=== PATIENT | female | born 1995 | race Caucasian/White ===

== ENCOUNTER 2016-08-29 22:12 | Emergency (ER) | payer OTHER ==
[~2016-08-29] VITALS: Ht 160 cm; Wt 54.4 kg
[2016-08-29] MEDS ORDERED: ETON1VAG (22:43)
--- NOTE | 2016-08-29 22:45 | ED Head Injury ---
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 PATIENT C/O NAUSEA Source: patient, RN notes reviewed Exam Limitations: no limitations History of Present Illness Time seen by provider: 22:45 Initial Comments As above and below. Concerned she may have a concussion. Occurred: yesterday Severity: mild Method of Injury: direct blow Loss of Consciousness: no loss of consciousness Associated Systoms: Headaches, Other (nausea) Allergies and Home Medications Allergies Coded Allergies: No Known Drug Allergies (Unverified , 08/29/16) Home Medications Etonogestrel/Ethinyl Estradiol 1 Each Vag.ring, #3 (Reported) Constitutional: see HPI Gastrointestinal: see HPI, nausea Psychiatric/Neurological: See HPI, Headache All Other Systems Reviewed Negative Unless Noted: Yes (Negative excepted noted.) Past Optpdcw-Ngusbz-Aqbhkj Hx Patient Social History Alcohol Use: Denies Use Recreational Drug Use: No Smoking Status: Never a Smoker Recent Foreign Travel: No Contact w/Someone Who Travel: No Recent Infectious Disease Expo: No Recent Hopitalizations: No Surgeries HX Surgeries: No Respiratory Hx Respiratory Disorders: No Cardiovascular Hx Cardiac Disorders: No Neurological Hx Neurological Disorders: No Reproductive System Hx Reproductive Disorders: No Sexually Transmitted Disease: No Genitourinary Hx Genitourinary Disorders: No Gastrointestinal Hx Gastrointestinal Disorders: No Musculoskeletal Hx Musculoskeletal Disorders: No Endocrine Hx Endocrine Disorders: No HEENT HX ENT Disorders: No Cancer Hx Cancer: No Psychosocial Hx Psychiatric Problems: No Integumentary HX Skin/Integumentary Disorder: No Blood Transfusions Hx Blood Disorders: No Physical Exam Vital Signs Vital Sign - Last 12Hours 08/29/16 22:40 Temp 98.2 Pulse 84 Resp 18 B/P (MAP) 133/80 Pulse Ox 99 Capillary Refill : Less Than 3 Seconds General Appearance: WD/WN, no apparent distress HEENT: PERRL/EOMI, TMs normal, pharynx normal Neck: non-tender, supple Cardiovascular: regular rate, rhythm Respiratory: no respiratory distress Psychiatric: alert, oriented x 3 Crainal Nerves: normal hearing, normal speech, PERRL Coordination/Gait: normal finger to nose, normal gait Motor/Sensory: no motor deficit, no sensory deficit, no pronator drift Skin: warm/dry Progress/Results/Core Measures Results/Orders My Orders Vital Signs/I&O Blood Pressure Mean: 97 Diagnostic Imaging Diagonstic Imaging: CT Plain Films/CT/US/NM/MRI: head Reviewed: Reviewed Night Hawk Study (nothing acute) Departure Impression Impression: Primary Impression: Concussion without loss of consciousness Disposition: 01 HOME, SELF-CARE Condition: Stable Departure-Patient Inst. Decision time for Depature: 23:46 Referrals: NO,LOCAL PHYSICIAN (PCP/Family) Primary Care Physician Patient Instructions: Concussion, Adult (DC) DONNIE KIRKPATRICK DO Aug 29, 2016 22:45
[2016-08-30 00:01] VITALS: BP 120/73
--- NOTE | 2016-08-30 07:52 | Diagnostic Imaging Report ---
PROCEDURE: CT head without contrast. TECHNIQUE: Multiple contiguous axial images were obtained through the brain without the use of intravenous contrast. INDICATION: Head injury. Pain. FINDINGS: There is no hemorrhage, hydrocephalus, edema, mass, mass effect, or evidence for elevated intracranial pressures. No calvarial fracture deformity or hemo-sinus apparent. IMPRESSION: No hemorrhage, fracture deformity, or acute abnormality. I agree with the preliminary. Dictated by: Dictated on workstation # [id number]
== END 2016-08-29 23:57 | disposition home or self-care (01) ==
LOC: ER 22:14
DX: S06.0X0A Concussion without loss of consciousness, initial encounter (principal); X58.XXXA Exposure to other specified factors, initial encounter; Y99.8 Other external cause status
CPT/HCPCS: 70450; 99282

== ENCOUNTER 2017-06-03 22:04 | Emergency (ER) | payer OTHER ==
[~2017-06-03] VITALS: Ht 160 cm; Wt 59.0 kg
[~2017-06-03 22:04] MED LIST: ETON1VAG
--- OUTSIDE RECORDS SUMMARY | 2017-06-03 22:10 | XMS REPORT | CCD ---
Author Author Auto Generated Organization [facility], [facility]. Address Unknown Phone Unavailable Care Team Providers Care Headhunter Name Role Phone Kasia Brooks PP [phone] Allergies, Adverse Reactions, Alerts Substance Reaction Status No Known Medication Allergies Active Problem List Condition Effective Dates Status Lymphadenopathy Active
--- OUTSIDE RECORDS SUMMARY | 2017-06-03 22:10 | XMS REPORT ---
Author Author [facility] Address Unknown Phone Unavailable Care Team Providers Care Care Team Coordinator Scheduler Name Role Phone Kasia Brooks PCP Encounter [id number] [id number] Date(s): 05/26/15 - 05/26/15 [facility] [address] [facility] [address] [phone] Attending Physician: Kasia Brooks MD Vital Signs No data available for this section Problem List Condition Effective Dates Status Health Status Informant Lymphadenopathy(Conf Active [facility]) Diagnosis Diagnosis Type Effective Dates Health Status Clinical Service Informant Dysmenorrhea Discharge 05/26/15 Non-Specified Diagnosis Allergies, Adverse Reactions, Alerts No Known Allergies Medications No Known Medications Results No data available for this section Immunizations No data available for this section Procedures No data available for this section Social History No data available for this section Assessment and Plan No data available for this section
--- OUTSIDE RECORDS SUMMARY | 2017-06-03 22:10 | XMS REPORT ---
Author Author [facility] Organization [facility] Address Unknown Phone Unavailable Care Team Providers Care Shell Assembler Name Role Phone Kasia Brooks PCP Encounter [id number] [id number] Date(s): 10/27/14 - 10/27/14 [facility] [address] [place], [place] [address] Discharge Diagnosis: Need for HPV vaccination Discharge Diagnosis: Need for hepatitis A vaccination Discharge Diagnosis: Need for Menactra vaccination Attending Physician: Guerita Winchester Vital Signs No data available for this section Problem List Condition Effective Dates Status Health Status Informant Lymphadenopathy(Conf Active [facility]) Allergies, Adverse Reactions, Alerts No Known Allergies Medications No Known Medications Results No data available for this section Immunizations No data available for this section Procedures No data available for this section Social History No data available for this section Assessment and Plan No data available for this section
--- OUTSIDE RECORDS SUMMARY | 2017-06-03 22:10 | XMS REPORT ---
Author Author [facility] Organization [facility] Address Unknown Phone Unavailable Care Team Providers Care Compounder Flavorings Name Role Phone Kasia Brooks PCP Encounter [id number] [id number] Date(s): 05/15/17 - 05/15/17 [facility] [address] [facility] Attending Physician: Kasia Brooks MD Vital Signs No data available for this section Problem List Condition Effective Dates Status Health Status Informant Lymphadenopathy(Conf Active [facility]) Allergies, Adverse Reactions, Alerts No Known Allergies Medications No data available for this section Results No data available for this section Immunizations Given and Recorded Vaccine Date Status Refusal Reason hepatitis A adult vaccine 06/01/16 Given tetanus/diphth/pertuss (Tdap) adult/adol 05/26/15 Given human papillomavirus vaccine 05/26/15 Given human papillomavirus vaccine 12/11/14 Given human papillomavirus vaccine 10/27/14 Given meningococcal conjugate vaccine 10/27/14 Given hepatitis A pediatric vaccine 10/27/14 Given varicella virus vaccine 01/10/11 Recorded varicella virus vaccine 05/14/97 Recorded diphtheria/pertussis, acel/tetanus pedia 01/10/11 Recorded diphtheria/pertussis, acel/tetanus pedia 07/05/00 Recorded diphtheria/pertussis, acel/tetanus pedia 09/03/97 Recorded diphtheria/pertussis, acel/tetanus pedia 02/19/97 Recorded influenza virus vaccine 05/15/03 Recorded poliovirus vaccine, inactivated 07/05/00 Recorded poliovirus vaccine, inactivated 08/14/97 Recorded poliovirus vaccine, inactivated 96 Recorded poliovirus vaccine, inactivated 96 Recorded measles/mumps/rubella virus vaccine 07/05/00 Recorded measles/mumps/rubella virus vaccine 05/14/97 Recorded pneumococcal 7-valent vaccine 10/07/99 Recorded haemophilus b conjugate (PRP-T) vaccine 09/03/97 Recorded haemophilus b-hepatitis B vaccine 02/19/97 Recorded dipht/haemophilus/pertuss/tetanus/polio 96 Recorded dipht/haemophilus/pertuss/tetanus/polio 96 Recorded hepatitis B pediatric/adolescent vaccine 96 Recorded hepatitis B pediatric/adolescent vaccine 96 Recorded Procedures No data available for this section Social History No data available for this section Assessment and Plan No data available for this section
--- OUTSIDE RECORDS SUMMARY | 2017-06-03 22:10 | XMS REPORT ---
Author Author [facility] Organization [facility] Address Unknown Phone Unavailable Care Team Providers Care Statistical Assistant Name Role Phone Kasia Brooks PCP Encounter [id number] [id number] Date(s): 12/11/14 - 12/11/14 [facility] [address] [place], [place] [address] Attending Physician: [facility] Walk-In Non-Staff Vital Signs No data available for this [...]
--- OUTSIDE RECORDS SUMMARY | 2017-06-03 22:10 | XMS REPORT ---
Author Author [facility] Organization [facility] Address Unknown Phone Unavailable Care Team Providers Care Drywall Contractor Name Role Phone Kasia Brooks PCP Encounter [id number] [id number] Date(s): 06/01/16 - 06/01/16 [facility] [address] [facility] [place] [address] [facility] Attending Physician: Kasia Brooks MD Vital Signs No data available for this section Problem List Condition Effective Dates Status Health Status Informant Lymphadenopathy(Conf Active [facility]med) Diagnosis Diagnosis Type Effective Dates Health Status Clinical Service Informant Routine check-up Discharge 06/01/16 Diagnosis Allergies, Adverse Reactions, Alerts No Known Allergies Medications No Known Medications Results No data available for this section Immunizations Given and Recorded Vaccine Date Status Refusal Reason diphtheria/pertussis, acel/tetanus pedia 01/10/11 Recorded diphtheria/pertussis, acel/tetanus pedia 07/05/00 Recorded diphtheria/pertussis, acel/tetanus pedia 09/03/97 Recorded diphtheria/pertussis, acel/tetanus pedia 02/19/97 Recorded dipht/haemophilus/pertuss/tetanus/polio 96 Recorded dipht/haemophilus/pertuss/tetanus/polio 96 Recorded haemophilus b conjugate (PRP-T) vaccine 09/03/97 Recorded haemophilus b-hepatitis B vaccine 02/19/97 Recorded hepatitis A adult vaccine 06/01/16 Given hepatitis A pediatric vaccine 10/27/14 Given hepatitis B pediatric/adolescent vaccine 96 Recorded hepatitis B pediatric/adolescent vaccine 96 Recorded human papillomavirus vaccine 05/26/15 Given human papillomavirus vaccine 12/11/14 Given human papillomavirus vaccine 10/27/14 Given influenza virus vaccine 05/15/03 Recorded measles/mumps/rubella virus vaccine 07/05/00 Recorded measles/mumps/rubella virus vaccine 05/14/97 Recorded meningococcal conjugate vaccine 10/27/14 Given pneumococcal 7-valent vaccine 10/07/99 Recorded poliovirus vaccine, inactivated 07/05/00 Recorded poliovirus vaccine, inactivated 08/14/97 Recorded poliovirus vaccine, inactivated 96 Recorded poliovirus vaccine, inactivated 96 Recorded tetanus/diphth/pertuss (Tdap) adult/adol 05/26/15 Given varicella virus vaccine 01/10/11 Recorded varicella virus vaccine 05/14/97 Recorded Procedures No data available for this section Social History No data available for this section Assessment and Plan No data available for this section
--- OUTSIDE RECORDS SUMMARY | 2017-06-03 22:10 | XMS REPORT ---
Author Author [facility] Organization [facility] Address Unknown Phone Unavailable Care Team Providers Care Tattoo And Body Artist Name Role Phone TdodHankKasia Robi PCP Encounter [id number] [id number] Date(s): 02/16/17 - 02/16/17 [facility] [address] [facility] Attending Physician: Peri Anderson APRN Vital Signs No data available for this section Problem List Condition Effective Dates Status Health Status Informant Lymphadenopathy(Conf Active [facility]med) Diagnosis Diagnosis Type Effective Dates Health Status Clinical Service Informant Headache Discharge 02/16/17 Diagnosis Depression Discharge 02/16/17 Diagnosis Anxiety Discharge 02/16/17 Diagnosis Heat intolerance Discharge 02/16/17 Diagnosis Allergies, Adverse Reactions, Alerts No Known [...]
--- OUTSIDE RECORDS SUMMARY | 2017-06-03 22:10 | XMS REPORT | Continuity of Care Document ---
Author Author [employer] Organization [facility] Address Unknown Phone Unavailable Care Team Providers Care Team Truck Driver Name Role Phone [employer] Unavailable Unavailable Problems Problem Status Onset Date Classification Date Reported Comments Source Dizziness and giddiness Diagnosis 04/25/2017 [facility] Headache 04/21/2017 Diagnosis 04/25/2017 [facility] Headache (finding) 2016 Diagnosis 04/25/2017 [facility] Dizziness (finding) 2016 Diagnosis 04/25/2017 [facility] Depressive disorder (disorder) 02/16/2017 Diagnosis 02/20 [facility] Anxiety (finding) 2016 Diagnosis 02/20/2017 [facility] Intolerant of heat (finding) 02/16/2017 Diagnosis 2016 [facility] Patient encounter status (finding) 06/01/2016 Diagnosis 06/05/2016 [facility] Dysmenorrhea (disorder) Diagnosis 05/30/2015 [facility] Need for prophylactic vaccination and inoculation against other viral diseases 10/27/2014 Diagnosis 10/31/2014 [facility] Need for prophylactic vaccination and inoculation against viral hepatitis 10/27/2014 Diagnosis 10/31/2014 [facility] Need for other specified vaccination against single bacterial disease 10/27/2014 Diagnosis 10/31/2014 [facility] Lymphadenopathy (disorder) Active Problem 07/03/2013 [facility]. Medications Medication Details Route Status Patient Instructions Ordering Provider Order Date Source No Known Medications No known medications Active [facility] Allergies, Adverse Reactions, Alerts Immunizations Immunization Date Given Site Status Last Updated Comments Source Hep A, adult 06/01/2016 Left Deltoid hepatitis A adult vaccine Gengler [facility] Tdap 05/26/2015 Left Deltoid tetanus/diphth/pertuss (Tdap) adult/adol [facility] HPV, quadrivalent 05/26/2015 Left Deltoid human papillomavirus vaccine [facility] HPV, quadrivalent 12/11/2014 Left Deltoid human papillomavirus vaccine S[facility] meningococcal MCV4P 10/27/2014 Left Deltoid meningococcal conjugate vaccine [facility] HPV, quadrivalent 10/27/2014 Right Deltoid human papillomavirus vaccine [facility] Hep A, ped/adol, 2 dose 10/27/2014 Left Deltoid hepatitis A pediatric vaccine [facility] varicella virus vaccine 01/10/2011 varicella virus vaccine [facility] diphtheria/pertussis, acel/tetanus pediatric 2010 diphtheria/pertussis, acel/tetanus pedia [facility] influenza virus vaccine 05/15/2003 influenza virus vaccine [facility] poliovirus vaccine, inactivated 07/05/2000 poliovirus vaccine, inactivated [facility] measles/mumps/rubella virus vaccine 07/05/2000 measles/mumps/rubella virus vaccine [facility] diphtheria/pertussis, acel/tetanus pediatric 2000 diphtheria/pertussis, acel/tetanus pedia [facility] pneumococcal 7-valent vaccine 10/07/1999 pneumococcal 7-valent vaccine [facility] diphtheria/pertussis, acel/tetanus pediatric 1997 diphtheria/pertussis, acel/tetanus pedia [facility] haemophilus b conjugate (PRP-T) vaccine 09/03/1997 haemophilus b conjugate (PRP-T ) vaccine [facility] poliovirus vaccine, inactivated 08/14/1997 poliovirus vaccine, inactivated [facility] measles/mumps/rubella virus vaccine 05/14/1997 measles/mumps/rubella virus vaccine [facility] varicella virus vaccine 05/14/1997 varicella virus vaccine [facility] haemophilus b-hepatitis B vaccine 02/19/1997 haemophilus b-hepatitis B vaccine [facility] diphtheria/pertussis, acel/tetanus pediatric 1996 diphtheria/pertussis, acel/tetanus pedia [facility] diphth/haemophilus/pertussis/tetanus/polio 1996 dipht/haemophilus/pertuss/ tetanus/polio [facility] poliovirus vaccine, inactivated 1996 poliovirus vaccine, inactivated [facility] diphth/haemophilus/pertussis/tetanus/polio 1996 dipht/haemophilus/pertuss/ tetanus/polio [facility] poliovirus vaccine, inactivated 1996 poliovirus vaccine, inactivated [facility] hepatitis B pediatric vaccine 1996 hepatitis B pediatric/adolescent vaccine [facility] hepatitis B pediatric vaccine 1996 hepatitis B pediatric/adolescent vaccine [facility] Results Vital Signs Encounters Location Location Details Encounter Type Encounter Number Reason For Visit Attending Provider ADM Date DC Date Status Source [facility] CD:[id number] Clinic ( Outpatient) [id number] Kasia Brooks 06/19/2013 Active [facility] [id number] Clinic ( Outpatient) [id number] Kasia Todd 06/25/2013 Active [facility] CD:[id number] Clinic ( Outpatient) [id number] Kasia Simonry 06/26/2013 Active [facility] [id number] Outpatient [id number] Kasia Todd 06/28/2013 06/28/2013 Active [facility], [facility] CD:[id number] Clinic ( Outpatient) [id number] Guerita Winchester 10/27/2014 Active [facility] [id number] Guerita Winchester 10/27/2014 10/28/2014 [facility] [id number] Clinic ( Outpatient) [id number] . [facility] Walk-In 12/11/2014 Active [facility] [id number] . [facility] Walk-In 12/11/2014 12/12/2014 [facility] CD:[id number] Clinic ( Outpatient) [id number] Kasia Todd 05/26/2015 Active [facility] [id number] Kasia Otdd 05/26/2015 05/27/2015 [facility] [id number] Clinic ( Outpatient) [id number] Kasia Todd 06/01/2016 Active [facility] [id number] Kasia Todd 06/01/2016 06/02/2016 [facility] [id number] Clinic ( Outpatient) [id number] Peri Anderson 02/16/2017 Active [facility] [id number] Peri Anderson 02/16/2017 02/17/2017 [facility] CD:[id number] Clinic ( Outpatient) [id number] Steve Garcia 04/21/2017 Active [facility] [id number] Stevejeffrey Garcia 04/21/2017 04/22/2017 [facility] CD:[id number] Clinic ( Outpatient) [id number] Kasia Brooks 05/15/2017 05/15/2017 Active [facility] Cancel/No Show [id number] Kasia Simonry 05/15/2017 [facility] Procedures Plan of Care Social History Assessment and Plan Family History Advance Directives Functional Status
[2017-06-03] MEDS ORDERED: LACTATED RINGERS 1,000 ML IV ONE (22:19)
[2017-06-03 22:26] LABS: BASOPHILS % (AUTO) 0 % (0-10); EOSINOPHILS # (AUTO) 0.2 10^3/uL (0.0-0.3); EOSINOPHILS % (AUTO) 2 % (0-10); HEMATOCRIT 36 % (35-52); HEMOGLOBIN 12.8 G/DL (11.5-16.0); LYMPHOCYTES # (AUTO) 2.6 X 10^3 (1.0-4.0); LYMPHOCYTES % (AUTO) 31 % (12-44); MEAN CORPUSCULAR HEMOGLOBIN 30 PG (25-34); MEAN CORPUSCULAR HGB CONC 36 G/DL (32-36); MEAN CORPUSCULAR VOLUME 83 FL (80-99); MEAN PLATELET VOLUME 9.4 FL (7.4-10.4); MONOCYTES # (AUTO) 0.6 X 10^3 (0.0-1.0); MONOCYTES % (AUTO) 7 % (0-12); NEUTROPHILS # (AUTO) 4.9 X 10^3 (1.8-7.8); NEUTROPHILS % (AUTO) 59 % (42-75); PLATELET COUNT 296 10^3/uL (130-400); RED CELL DISTRIBUTION WIDTH 12.2 % (10.0-14.5); WHITE BLOOD COUNT 8.3 10^3/uL (4.3-11.0)
--- NOTE | 2017-06-03 22:38 | ED Psychosocial ---
General Chief Complaint: Overdose Stated Complaint: OVERDOSE Source: patient History of Present Illness Time seen by provider: 22:05 Initial Comments PT AR[place]IVES VIA EMS [place] A [place]AL PARK PT STATES SHE TOOK 11 BENADRYL AND DRANK ALMOST 2 "MARILU'S HARD LEMONADES" SOMETIME BETWEEN 2129 AND 2199 TONIGHT, WHILE IN A LOCAL PARK--VERY COLD OUTSIDE --32 DEGREES PT STATES SHE CALLED HER "BEST FRIEND NEAL" WHEN SHE DID IT AND HE CALLED POLICE/EMS WHEN ASKED WHY SHE DID IT, SHE STATES "I DON'T KNOW WHY" "I JUST DID IT" --PT VERY VAGUE AND ELUSIVE ABOUT ANSWERING DIRECT QUESTIONS REGARDING HER ACTIONS TONIGHT PT SAYS SHE DOES NOT KNOW WHAT SHE WAS TRYING TO ACCOMPLISH BY TAKING PILLS WITH ALCOHOL AND BEING OUTSIDE WITH VERY COLD TEMPERATURES PT ADMITS THAT SHE HAS HAD THOUGHTS OF HURTING HERSELF IN THE PAST, BUT HAS NEVER ACTUALLY DONE IT PT STATES "I JUST FEEL REALLY DOWN ABOUT EVERYTHING" PT STATES SHE HAS BEEN DEPRESSED "HER WHOLE LIFE" BUT DID NOT SEEK TREATMENT UNTIL APPROXIMATELY A YEAR AGO, WHEN DEPRESSION SEEMED TO BE GETTING WORSE HAS BEEN SEEN AT [facility] OVER THE LAST YEAR ( PT IS A [employer] STUDENT FROM [place], [place]--CURRENTLY LIVING WITH HER UNCLE HERE IN [place]) PT STATES SHE WAS INITIALLY ON ZOLOFT, BUT "FELT AWFUL ON IT", AND WAS SWITCHED TO CYMBALTA 60 MG 3 WEEKS AGO. PT DENIES ANY PROBLEMS WITH SCHOOL, FRIENDS, FAMILY DENIES ANY STRESSORS, OTHER THAN SHE IS TRYING TO FIND A JOB , SHE QUIT HER ON-CAMPUS JOB LAST SEMESTER, AND WANTING TO GET AN APARTMENT WITH A FRIEND, BUT DOES NOT HAVE ANY MONEY TO DO THAT RIGHT NOW. PT WILL NOT STATE WHAT PROMPTED HER TO DO THIS TONIGHT--SHE REPEATEDLY STATES " I DON'T KNOW WHY" --DENIES ANY SPECIFIC TRIGGER [employer] STUDENT FROM [place], [place] Allergies and Home Medications Allergies Coded Allergies: No Known Drug Allergies (Unverified , 08/29/16) Home Medications Etonogestrel/Ethinyl Estradiol 1 Each Vag.ring, #3 (Reported) Constitutional: no symptoms reported EENTM: no symptoms reported Respiratory: no symptoms reported Cardiovascular: no symptoms reported Gastrointestinal: no symptoms reported Genitourinary: no symptoms reported : No LMP: Mar 29, 2017 Control/STD Prophylaxis: Other (NUVARING--TAKES CONTINUOUSLY SO SHE DOES NOT HAVE PERIODS) Musculoskeletal: no symptoms reported Skin: no symptoms reported Psychiatric/Neurological: See HPI, Depressed Past Cseffsi-Imbfhb-Zcwjsc Hx Patient Social History Alcohol Use: Rarely Uses Recreational Drug Use: No Smoking Status: Never a Smoker Recent Hopitalizations: No Surgeries History of Surgeries: No Respiratory History of Respiratory Disorde: No Cardiovascular History of Cardiac Disorders: No Neurological History of Neurological Disord: No Reproductive System Hx Reproductive Disorders: Yes (PAINFUL PERIODS) Sexually Transmitted Disease: No Female Reproductive Disorders: Menstrual Problems Genitourinary History of Genitourinary Disor: No Gastrointestinal History of Gastrointestinal Di: No Musculoskeletal History of Musculoskeletal Dis: No Endocrine History of Endocrine Disorders: No HEENT History of HEENT Disorders: No Cancer History of Cancer: No Psychosocial History of Psychiatric Problem: Yes (SUICIDAL IDEATIONS) Behavioral Health Disorders: Depression Integumentary History of Skin or Integumenta: No Blood Transfusions History of Blood Disorders: No Physical Exam Vital Signs Vital Sign - Last 12Hours 06/03/17 22:05 Temp 99.0 Pulse 102 Resp 18 B/P (MAP) 122/67 (85) Pulse Ox 99 O2 Delivery Room Air Capillary Refill : General Appearance: WD/WN, no apparent distress, other (SHIVERING/TREMULOUS, TEARFUL AT TIMES. DOES NOT APPEAR DROWSY OR INTOXICATED OR TO BE UNDER THE INFLUENCE OF ANY SUBSTANCE. SPEECH IS CLEAR. NO ODOR OF ETOH. ) HEENT: PERRL/EOMI, normal ENT inspection, TMs normal, pharynx normal Neck: non-tender, full range of motion, supple, normal inspection Respiratory: normal breath sounds, no respiratory distress, no accessory muscle use Cardiovascular: normal peripheral pulses, regular rate, rhythm, no edema, no JVD, no murmur Peripheral Pulses: 1+ Dorsalis Pedis (R), 1+ Left Dors-Pedis (L), 1+ Radial Pulses (R), 1+ Radial Pulses (L) Gastrointestinal: normal bowel sounds, non tender, soft Extremities: normal range of motion, non-tender, normal inspection, no pedal edema, no calf tenderness, normal capillary refill Neurologic/Psychiatric: airport traffic controller II-XII nml as tested, no motor/sensory deficits, alert, oriented x 3 Appearance/Memory: appropriate appearance, neat, no memory impairment Behavior/Eye Contact: cooperative, good eye contact, normal speech Thoughts/Hallucinations: no apparent hallucination, other (DEPRESSED, SUICIDAL IDEATION) Skin: normal color, warm/dry, other (NO EXTERNAL EVIDENCE OF TRAUMA) Progress/Results/Core Measures Results/Orders Lab Results Laboratory Tests Test 06/03/17 22:00 06/03/17 22:11 Range/Units Urine Color YELLOW Urine Clarity CLEAR Urine pH 5 5-9 Urine Specific Deloit 1.025 H 1.016-1.022 Urine Protein 2+ H NEGATIVE Urine Glucose (UA) NEGATIVE NEGATIVE Urine Ketones 1+ H NEGATIVE Urine Nitrite NEGATIVE NEGATIVE Urine Bilirubin NEGATIVE NEGATIVE Urine Urobilinogen NORMAL NORMAL MG/DL Urine Leukocyte Esterase 1+ H NEGATIVE Urine RBC (Auto) NEGATIVE NEGATIVE Urine RBC RARE /HPF Urine WBC 2-5 /HPF Urine Squamous Epithelial Cells 2-5 /HPF Urine Crystals NONE /LPF Urine Bacteria TRACE /HPF Urine Casts NONE /LPF Urine Mucus SMALL H /LPF Urine Culture Indicated NO Urine Opiates Screen NEGATIVE NEGATIVE Urine Oxycodone Screen NEGATIVE NEGATIVE Urine Methadone Screen NEGATIVE NEGATIVE Urine Propoxyphene Screen NEGATIVE NEGATIVE Urine Barbiturates Screen NEGATIVE NEGATIVE Ur Tricyclic Antidepressants Screen NEGATIVE NEGATIVE Urine Phencyclidine Screen NEGATIVE NEGATIVE Urine Amphetamines Screen NEGATIVE NEGATIVE Urine Methamphetamines Screen NEGATIVE NEGATIVE Urine Benzodiazepines Screen NEGATIVE NEGATIVE Urine Cocaine Screen NEGATIVE NEGATIVE Urine Cannabinoids Screen NEGATIVE NEGATIVE White Blood Count 8.3 4.3-11.0 10^3/uL Red Blood Count 4.30 L 4.35-5.85 10^6/uL Hemoglobin 12.8 11.5-16.0 G/DL Hematocrit 36 35-52 % Mean Corpuscular Volume 83 80-99 FL Mean Corpuscular Hemoglobin 30 25-34 PG Mean Corpuscular Hemoglobin Concent 36 32-36 G/DL Red Cell Distribution Width 12.2 10.0-14.5 % Platelet Count 296 130-400 10^3/uL Mean Platelet Volume 9.4 7.4-10.4 FL Neutrophils (%) (Auto) 59 42-75 % Lymphocytes (%) (Auto) 31 12-44 % Monocytes (%) (Auto) 7 0-12 % Eosinophils (%) (Auto) 2 0-10 % Basophils (%) (Auto) 0 0-10 % Neutrophils # (Auto) 4.9 1.8-7.8 X 10^3 Lymphocytes # (Auto) 2.6 1.0-4.0 X 10^3 Monocytes # (Auto) 0.6 0.0-1.0 X 10^3 Eosinophils # (Auto) 0.2 0.0-0.3 10^3/uL Basophils # (Auto) 0.0 0.0-0.1 10^3/uL Sodium Level 140 135-145 MMOL/L Potassium Level 3.3 L 3.6-5.0 MMOL/L Chloride Level 111 H 98-107 MMOL/L Carbon Dioxide Level 16 L 21-32 MMOL/L Anion Gap 13 5-14 MMOL/L Blood Urea Nitrogen 14 7-18 MG/DL Creatinine 0.70 0.60-1.30 MG/DL Estimat Glomerular Filtration Rate > 60 BUN/Creatinine Ratio 20 Glucose Level 96 70-105 MG/DL Calcium Level 8.7 8.5-10.1 MG/DL Total Bilirubin 0.2 0.1-1.0 MG/DL Aspartate Amino Transf (AST/SGOT) 12 5-34 U/L Alanine Aminotransferase (ALT/SGPT) 9 0-55 U/L Alkaline Phosphatase 47 40-136 U/L Total Protein 6.8 6.4-8.2 GM/DL Albumin 3.8 3.2-4.5 GM/DL TSH [place] Testing 2.36 0.35-4.94 UIU/ML Salicylates Level < 5.0 L 5.0-20.0 MG/DL Acetaminophen Level < 10 L 10-30 UG/ML Serum Alcohol 16 H <10 MG/DL My Orders Orders - QUINTIN BEST DO Ua Culture If Indicated (06/03/17 22:19) Thyroid Analyzer (06/03/17 22:19) Drug Screen Stat (Urine) (06/03/17 22:19) Cbc With Automated Diff (06/03/17 22:19) Comprehensive Metabolic Panel (06/03/17 22:19) Alcohol (06/03/17 22:19) Acetaminophen (06/03/17 22:19) Salicylate (06/03/17 22:19) Ekg Tracing (06/03/17 22:19) Monitor-Rhythm Ecg Trace Only (06/03/17 22:19) Saline Lock/Iv-Start (06/03/17 22:19) Saline Lock/Iv-Start (06/03/17 22:19) Lactated Ringers (Lr 1000 Ml Iv Solution (06/03/17 22:19) Lactated Ringers (Lr 1000 Ml Iv Solution (06/04/17 04:00) Medications Given in ED Current Medications Medications Dose Ordered Sig/Cindy Route Start Time Stop Time Status Last Admin Dose Admin Lactated Ringer's 1,000 ml @ 0 mls/hr Q0M ONCE IV 06/03/17 22:19 06/03/17 22:21 DC 06/03/17 22:37 0 MLS/HR Vital Signs/I&O Vital Sign - Last 12Hours 06/03/17 06/04/17 22:05 04:11 Temp 99.0 Pulse 102 89 Resp 18 18 B/P (MAP) 122/67 (85) Pulse Ox 99 99 O2 Delivery Room Air Room Air Intake and Output 06/04/17 00:00 Intake Total 1800 ml Balance 1800 ml ECG Initial ECG Impression Time: 22:17 Initial ECG Rate: 105 Initial ECG Rhythm: S.Tach Initial ECG Comparisson: No Previous ECG Available Departure Communication (Admissions) Progress Notes 2255--CALLED [facility], WILL PAGE SCREENER AND CALL BACK 2300--SCREENER CALLED, WILL BE HERE SHORTLY TO SEE PT 0020--SCREENER HAS SEEN PT. PT DOES NOT WANT INPATIENT TREATMENT. PT HAS APPOINTMENT ALREADY WITH COUNSELOR ON Monday06/05/17. SHE WILL BE CONTACTING PT 'S FRIEND AND MAKING A SAFETY PLAN FOR THE WEEKEND, AND PT IS HOPING SHE CAN STAY WITH "HER BEST FRIEND NEAL" THIS WEEKEND FOR THIS PURPOSE. SHE DOES NOT FEEL THAT PT IS AN IMMEDIATE THREAT TO HERSELF AT THIS TIME. . 0040--SCREENER HAS TALKED WITH PT'S BEST FRIEND ( WHO PT CALLED RICHIE, AND HE CALLED EMS/POLICE) AND HE HAS PROVIDED MUCH ADDITIONAL INFORMATION, HE HAS REPORTED THAT PT ASKS HIM DAILY IF SHE CAN KILL HERSELF, AND SHE HAS BEEN TRYING TO PURCHASE A GUN, AND HE THINKS THAT HER THREATS ARE VERY SERIOUS, AND SCREENER NOW AGREES. SCREENER NOW ATTEMPTING TO FIND PLACEMENT AT INPATIENT FACILITY 0045--PT NOW VERY UPSET, BECAUSE SHE IS GOING TO BE ADMITTED TO PSYCH FACILITY-- EITHER VOLUNTARILY OR INVOLUNTARILY--AND STATED TO SCREENER THAT "SHE WISHED SHE WAS ALREADY " 0145--PSYCH SCREENER HAS NOT BEEN ABLE TO LOCATE A BED, AFTER CONTACTING [address] LEES -SHE WILL ACCEPT PT FOR OBSERVATION UNTIL A PSYCH BED CAN BE LOCATED 0200--DENTAL INSURANCE COORDINATOR HAS LOCATED A BED AT [facility] IN [place], AND WILL ACCEPT PT. SENDING PT'S INFORMATION TO THEM NOW. 0300--[facility] TALKING WITH PT ON PHONE. PT NOW TELLING THEM SHE DOES NOT WANT TO GO THERE, AND THEY WILL ONLY TAKE PT IF SHE IS VOLUNTARY. PT NOW BECOMING EXTREMELY MANIPULATIVE. NOW STATING "I DIDN'T REALLY THINK I WOULD " FROM TAKING THE PILLS TONIGHT. DENTAL INSURANCE COORDINATOR AND MYSELF HAD LENGTHY DISCUSSION WITH PT AND INFORMING HER THAT SHE CAN CHOOSE TO GO TO [facility] VOLUNTARILY OR WILL BE GOING TO [place] INVOLUNTARILY--THIS HAD ALREADY ALL BEEN DISCUSSED AT LENGTH WITH HER BY MENTAL HEALTH SCREENER, AND PT HAD AGREED TO GO TO [facility]. PT BECOMING UPSET AGAIN, STATING "SHE WILL BE ISOLATED ANY WHERE THAT WE TRY TO SEND HER, AND SHE WON'T BE ABLE TO TALK TO HER "BEST FRIEND NEAL" AND GIVES THIS REASON THAT SHE DOES NOT WANT TO GO. PT AGAIN ADVISED OF HER OPTIONS. PT NOW AGAIN AGREES TO GO TO [facility]. 0324--SPOKE WITH SCARLET WITH [facility] AND GAVE HER UPDATE. WILL CONTACT HER IF PT BECOMES INVOLUNTARY CANDIDATE FOR PLACEMENT AT [place]. 0325--CALLED [facility] AGAIN AND DENTAL INSURANCE COORDINATOR HAS TALKED WITH THEM, AND THEY AGREE TO TAKE PT. [facility] CONTACTED FOR TRANSPORT. Impression Impression: Primary Impression: Suicide attempt Additional Impressions: Intentional overdose of drug in tablet form Major depression Disposition: 65 XFER TO PSYCH HOSP/UNIT Condition: Stable Departure-Patient Inst. Referrals: [facility] (PCP/Family) Primary Care Physician QUINTIN BEST DO Jun 03, 2017 22:38
[2017-06-03 22:39] LABS: ALANINE AMINOTRANSFERASE 9 U/L (0-55); ALBUMIN 3.8 GM/DL (3.2-4.5); ALKALINE PHOSPHATASE 47 U/L (40-136); BILIRUBIN,TOTAL 0.2 MG/DL (0.1-1.0); BUN/CREATININE RATIO 20; CALCIUM 8.7 MG/DL (8.5-10.1); CARBON DIOXIDE 16 MMOL/L (21-32); CHLORIDE 111 MMOL/L (98-107); GFR ESTIMATED > 60; GLUCOSE 96 MG/DL (70-105); POTASSIUM 3.3 MMOL/L (3.6-5.0); SALICYLATE < 5.0 MG/DL (5.0-20.0); SODIUM 140 MMOL/L (135-145); TOTAL PROTEIN 6.8 GM/DL (6.4-8.2)
[2017-06-03 22:40] LABS: ACETAMINOPHEN < 10 UG/ML (10-30)
[2017-06-03 22:42] LABS: BILIRUBIN,URINE NEGATIVE (NEGATIVE); CLARITY,URINE CLEAR; COLOR,URINE YELLOW; GLUCOSE, URINE (UA) NEGATIVE (NEGATIVE); KETONES,URINE 1+ (NEGATIVE); LEUKOCYTE ESTERASE ,URINE 1+ (NEGATIVE); NITRITE,URINE NEGATIVE (NEGATIVE); PH,URINE 5 (5-9); PROTEIN,URINE 2+ (NEGATIVE); UROBILINOGEN,URINE NORMAL (NORMAL)
[2017-06-03 22:50] LABS: BACTERIA,URINE TRACE /HPF; RBC,URINE RARE /HPF
[2017-06-03 22:55] LABS: AMPHETAMINE SCREEN, URINE NEGATIVE (NEGATIVE); BENZODIAZEPINES SCREEN URINE NEGATIVE (NEGATIVE); COCAINE SCREEN URINE NEGATIVE (NEGATIVE)
[2017-06-03 22:56] LABS: BARBITURATE SCREEN URINE NEGATIVE (NEGATIVE); CANNABINOID SCREEN, URINE NEGATIVE (NEGATIVE); METHADONE STAT NEGATIVE (NEGATIVE); METHAMPHETAMINE SCREEN URINE S NEGATIVE (NEGATIVE); OPIATE SCREEN URINE NEGATIVE (NEGATIVE); OXYCODONE STAT NEGATIVE (NEGATIVE); PROPOXYPHENE STAT NEGATIVE (NEGATIVE); TRICYCLIC ANTIDEPRESSANTS SCRE NEGATIVE (NEGATIVE)
[2017-06-03 22:58] LABS: TSH (THYROID ANALYZER) 2.36 UIU/ML (0.35-4.94)
[2017-06-03] MEDS ORDERED: ONDANSETRON 4 MG/2 ML (SDV) Z0FRAN IVP ONE (23:15)
[2017-06-03] MEDS ORDERED: SCOPOLAMINE 1.5 MG (TRANSDERM-SCOP) PATCH TD ONE (23:15)
[2017-06-03] MEDS ORDERED: ORPHENADRINE 60 MG/2 ML (NORFLEX) AMP IV ONE (23:15)
[2017-06-04] MEDS ORDERED: LACTATED RINGERS 1,000 ML IV ONE (04:00)
[2017-06-04 04:11] VITALS: BP 112/66
== END 2017-06-04 04:31 ==
LOC: EDUNIT# 22:04 → ER 22:05
DX: T43.212A Poisoning by selective serotonin and norepinephrine reuptake inhibitors, intentional self-harm, initial encounter (principal); F32.9 Major depressive disorder, single episode, unspecified
CPT/HCPCS: 36415; 80053; 80306; 80320; 80329; 81000; 84443; 85025; 93005; 93041